=== PATIENT | female | born 1970 | race American Indian/Alaskan Native ===

== ENCOUNTER 2021-05-13 12:59 | Emergency (ER) | payer SELFPAY ==
[2021-05-13 13:53] VITALS: BP 165/98
--- NOTE | 2021-05-13 16:48 | Emergency Department Report ---
Upper Extremity - HPI Chief Complaint: Extremity Problem,Nontraumatic Stated Complaint: ARM SWELLING Time Seen by Provider: 05/13/21 15:20 Upper Extremity: Right Wrist (Right wrist fracture) Symptoms: Yes Limited Range of Movement, Yes Swelling, No Pain with Movement, No Deformity Other History: 50-year-old -[place] female presents to the emergency room reporting a right wrist fracture that has a splint placed and states that she was feeling swelling and increased pain after getting a Covid vaccine on Thursday. Patient denies any reinjury. Patient states that she has a follow-up orthopedic appointment on Thursday. ED Review of Systems ROS: Stated complaint: ARM SWELLING Other details as noted in HPI Comment: All other systems reviewed and negative ED Past Medical Hx - Past Medical History Previous Medical History?: No - Surgical History Past Surgical History?: Yes Additional Surgical History: Right wrist surgery 2 weeks ago. C-Sections Upper Extremity Exam - Exam General: Vital signs noted. No distress. Alert and acting appropriately. Head and Torso: No HEENT Abnormality, No Neck Tenderness, No Chest/Lungs Abnormality, No Abdominal Tenderness, No Back Tenderness Shoulder Exam: Yes Normal Range of Motion in Shoulder, No Shoulder Tenderness, No Clavicle Tenderness, No Shoulder Deformity, No AC Joint Tenderness Arm Exam: No Arm/Humerus Tenderness, No Arm Deformity Elbow: No Elbow Tenderness, No Normal Range of Motion in Elbow, No Elbow Deformity Forearm: No Forearm Tenderness, No Forearm Deformity, No Pain with Pronation, No Pain with Supination Wrist: No Wrist Tenderness, No Normal ROM in Wrist (Decreased secondary to recent surgery), No Wrist Deformity, No Snuffbox Tenderness, No Pain with Axial Thumb Compression Hand: Yes Normal ROM in Digit(s), No Hand Tenderness, No Hand Deformity, No Digit Tenderness, No Digit(s) Deformity, No Tendon Dysfunction CMS Exam: No Broken Skin, No Normal Distal Pulses, No Normal Capillary Refill, No Normal Distal Sensation ED Course Vital Signs 05/13/21 13:52 Temperature 98.2 F Pulse Rate 74 Respiratory 18 Rate Blood Pressure 165/98 O2 Sat by Pulse 100 Oximetry ED Medical Decision Making - Medical Decision Making 50-year-old -[place] female presents to the emergency room reporting a right wrist fracture that has a splint placed and states that she was feeling swelling and increased pain after getting a Covid vaccine on Thursday. Patient denies any reinjury. Patient states that she has a follow-up orthopedic appointment on Thursday. Cast was taken off by this provider. Arm does not appear to be swollen there is no breakdown there is a surgical scar on the volar aspect of the hand. Patient has full range of motion of her fingers. Capillary refills are less than 2 and brisk. Patient will have her splint replaced and instructed to keep her appointment with her orthopedic provider on Thursday. Discussed with patient she can take her pain medication as been prescribed by her orthopedic provider. Patient verbalized understanding Critical care attestation.: If time is entered above; I have spent that time in minutes in the direct care of this critically ill patient, excluding procedure time. ED Disposition Clinical Impression: Right forearm pain Disposition: TO HOME OR SELFCARE Is pt being admited?: No Does the pt Need Aspirin: No Condition: Stable Additional Instructions: Please keep your splint clean and dry. Follow-up with your orthopedic provider on Thursday. Continue with your chronic pain medications. Referrals: PRIMARY CARE, [Primary Care Provider] - 3-5 Days Your, orthopedic provider [Other] - 3-5 Days Forms: Work/School Release Form(ED)
== END 2021-05-13 17:04 | disposition home or self-care (01) ==
LOC: ED 12:59
DX: M79.631 Pain in right forearm (principal); Z98.890 Other specified postprocedural states; Z79.899 Other long term (current) drug therapy
CPT/HCPCS: 99281